=== PATIENT | male | born 1970 | race American Indian/Alaskan Native ===

== ENCOUNTER 2022-07-17 10:29 | Emergency (ER) | payer OTHER ==
[~2022-07-17] VITALS: Ht 172.7 cm; Wt 98.4 kg
[2022-07-17] MEDS ORDERED: SPIRONOLACTONE100 MG NG (17:00)
[2022-07-17] MEDS ORDERED: FUROSEMIDE40 MG PO (17:00)
== END 2022-07-17 17:41 | disposition home or self-care (01) ==
LOC: ED 10:29
DX: R18.8 Other ascites (principal); E11.9 Type 2 diabetes mellitus without complications; E78.00 Pure hypercholesterolemia, unspecified
CPT/HCPCS: 36415; 49083; 74177; 80053; 81003; 82040; 82945; 83690; 84155; 84157; 85025; 85610; 89051; 99284-25; Q9967

== ENCOUNTER 2023-02-10 10:06 | Emergency (ER) | payer OTHER ==
[~2023-02-10] VITALS: Ht 172.7 cm; Wt 98.6 kg
[~2023-02-10 10:06] MED LIST: FUROSEMIDE40 MG PO; SPIRONOLACTONE100 MG NG
[2023-02-10 10:53] LABS: BASOPHILS 5.6 % (0-2); HEMATOCRIT 36.4 % (35.0-50.0); HEMOGLOBIN 12.5 g/dL (12.0-18.0); MCHC 34.2 g/dl (30-36); MCV 90.6 fl (81-99); NEUTROPHILS 73.4 % (39-80); PLATELET COUNT 251 K/uL (140-440); RBC 4.02 M/ul (4.3-5.7); RDW 14.3 (10.5-15.0)
[2023-02-10 11:00] LABS: ALBUMIN 2.8 g/dL (3.4-5.0); ALBUMIN/GLOBULIN RATIO 0.61 (1.1-2.4); ANION GAP 13.5 (7-21); BILIRUBIN, TOTAL 1.7 ng/dL (0.2-1.0); BUN/CREATININE RATIO 13.79 (6.0-28.6); CALCIUM 8.5 mg/dL (8.5-10.1); CREATININE, SERUM 1.45 mg/dL (0.70-1.30); POTASSIUM 4.5 mmol/L (3.5-5.1); PROTEIN, TOTAL 7.4 g/dL (6.4-8.2)
[2023-02-10 11:53] LABS: INR 1.22 (0.80-1.30); PROTIME 14.9 Sec (11.2-14.2)
[2023-02-10 14:38] LABS: APPEARANCE, BODY FLUID CLOUDY; MONONUCLEAR CELLS, BODY FLUID 71; PMNS, BODY FLUID 29; RBC, BODY FLUID 5213; WBC, BODY FLUID 50
[2023-02-10 14:39] LABS: SOURCE, BODY FLUID ascites
[2023-02-10 15:01] VITALS: BP 140/88
[2023-02-12 19:57] LABS: LACTATE DEHYDROGENASE TOTAL,BF 54 U/L (()); LDH FLUID SOURCE Ascites fluid (()); TOTAL PROTEIN FLUID SOURCE Ascites fluid (()); TOTAL PROTEIN, BODY FLUID 1.9 g/dL (())
== END 2023-02-10 15:03 | disposition home or self-care (01) ==
LOC: ED 10:06
PROVIDERS: Emergency Medicine
DX: K70.31 Alcoholic cirrhosis of liver with ascites (principal); E11.9 Type 2 diabetes mellitus without complications
CPT/HCPCS: 36415; 49083; 80053; 84157; 85025; 85610; 87070; 87075; 87205; 89051; 99284-25

== ENCOUNTER 2023-02-19 15:39 | Emergency (ER) | payer OTHER ==
[~2023-02-19] VITALS: Ht 172.7 cm; Wt 100.6 kg
--- OUTSIDE RECORDS SUMMARY | 2023-02-19 15:57 | XMS ---
PreManage Notification: ANY HAHN Security Compliance Review Officer Events No recent Security Events currently on file CRITERIA MET - [facility] - 2 Visits in 30 Days CARE PROVIDERS There are no care providers on record at this time. Kay has no Care Guidelines for this patient. Lala VISIT COUNT (12 MO.) 3 [facility] TOTAL 3 NOTE: Visits indicate total known visits. ED/C VISIT TRACKING (12 MO.) [facility]19[facility]2023 15[facility] [facility] COMPLAINT: - ABDOMINAL PAIN 02/10/2023 10:07 [facility] [place] TYPE: Emergency COMPLAINT: - LOWER ABD PAIN DIAGNOSES: - Alcoholic cirrhosis of liver with ascites - Lower abdominal pain, unspecified - Type 2 diabetes mellitus without complications 07/17/2022 10:30 [facility] [place] TYPE: Emergency COMPLAINT: - FLUID IN STOMACH DIAGNOSES: - Other ascites - Pure hypercholesterolemia, unspecified - Type 2 diabetes mellitus without complications INPATIENT VISIT TRACKING (12 MO.) No inpatient visits to display in this time frame [id number]
[2023-02-19 19:25] VITALS: BP 123/80
[2023-02-19 19:31] LABS: APPEARANCE, BODY FLUID CLOUDY
[2023-02-19 19:32] LABS: RBC, BODY FLUID 2860; WBC, BODY FLUID 177
[2023-02-19 19:35] LABS: MONONUCLEAR CELLS, BODY FLUID 78; PMNS, BODY FLUID 22; SOURCE, BODY FLUID ascites
[2023-02-21 12:27] LABS: TOTAL PROTEIN FLUID SOURCE Ascites fluid (()); TOTAL PROTEIN, BODY FLUID 1.4 g/dL (())
== END 2023-02-19 19:25 | disposition home or self-care (01) ==
LOC: ED 15:39
PROVIDERS: Emergency Medicine
DX: K70.31 Alcoholic cirrhosis of liver with ascites (principal); N17.9 Acute kidney failure, unspecified; E11.9 Type 2 diabetes mellitus without complications; Z79.899 Other long term (current) drug therapy
CPT/HCPCS: 49083; 80053; 84157; 87070; 87205; 89051; 99284-25

== ENCOUNTER 2023-03-05 10:09 | Emergency (ER) | payer OTHER ==
[~2023-03-05] VITALS: Ht 172.7 cm; Wt 96.6 kg
--- OUTSIDE RECORDS SUMMARY | 2023-03-05 10:17 | XMS ---
PreManage Notification: ANY HAHN Security Clinical Informatics Manager Events No recent Security Events currently on file CRITERIA MET - [facility] - 2 Visits in 30 Days CARE PROVIDERS There are no care providers on record at this time. Kay has no Care Guidelines for this patient. Lala VISIT COUNT (12 MO.) [address] Jenny Roman ([place]re[place]) TOTAL 6 NOTE: Visits indicate total known visits. ED/C VISIT TRACKING (12 MO.) 03/05/2023 10:10 [facility] [place] TYPE: Emergency COMPLAINT: - ABD PAIN 02/26/2023 00:42 [facility] Ben LAMA ([place]) TYPE: Emergency DIAGNOSES: - Hypo-osmolality and hyponatremia - leg cramping - Muscle Pain 02/24/2023 14:22 [facility] [place] [facility] COMPLAINT: - ABD SWELLING DIAGNOSES: - Abdominal distension (gaseous) - Alcoholic cirrhosis of liver with ascites - Hypo-osmolality and hyponatremia - Type 2 diabetes mellitus without complications 02/19/2023 15:39 [facility] [place] TYPE: Emergency COMPLAINT: - ABDOMINAL PAIN DIAGNOSES: - Acute kidney failure, unspecified - Alcoholic cirrhosis of liver with ascites - Other terminal supervisor (current) drug therapy - Type 2 diabetes mellitus without complications 02/10/2023 10:07 [facility] [place] TYPE: Emergency COMPLAINT: - LOWER ABD PAIN DIAGNOSES: - Alcoholic cirrhosis of liver with ascites - Lower abdominal pain, unspecified - Type 2 diabetes mellitus without complications 07/17/2022 10:30 [facility] [place] TYPE: Emergency COMPLAINT: - FLUID IN STOMACH DIAGNOSES: - Other ascites - Pure hypercholesterolemia, unspecified - Type 2 diabetes mellitus without complications INPATIENT VISIT TRACKING (12 MO.) 02/26/2023 00:42 [facility] TYPE: Surgical Services DIAGNOSES: - Hepatic failure, unspecified without coma - Hypo-osmolality and hyponatremia - Unspecified cirrhosis of liver [email or web address]
[2023-03-05] MEDS ORDERED: MIDODRINE HCL5 MG PO (10:47)
[2023-03-05] MEDS ORDERED: SPIRONOLACTONE100 MG NG (10:47)
[2023-03-05] MEDS ORDERED: FUROSEMIDE40 MG PO (10:47)
[2023-03-05 13:36] VITALS: BP 105/55
== END 2023-03-05 13:37 | disposition home or self-care (01) ==
LOC: ED 10:09
DX: K74.60 Unspecified cirrhosis of liver (principal); E78.5 Hyperlipidemia, unspecified; E11.9 Type 2 diabetes mellitus without complications; Z79.899 Other long term (current) drug therapy
CPT/HCPCS: 49083; 99284-25; P9047

== ENCOUNTER 2023-03-11 12:04 | Emergency (ER) | payer OTHER ==
[~2023-03-11] VITALS: Ht 172.7 cm; Wt 97.6 kg
[~2023-03-11 12:04] MED LIST changes: +MIDODRINE HCL5 MG PO
--- OUTSIDE RECORDS SUMMARY | 2023-03-11 12:12 | XMS ---
PreManage Notification: ANY HAHN Security Bulk Sealer Events 1 event(s) in the past 18 months Most recent security events: Elopement at [facility] 02/24/2023 14:22 - Patient eloped before treatment completed. - Patient with suicidal and/or homicidal ideations eloped. - Patient eloped with IV in place. Details: PATIENT LEFT AMA CRITERIA MET - 6 ED Visits in 6 Months - Group Notification - [facility] - 2 Visits in 30 Days CARE PROVIDERS There are no care providers on record at this time. Kay has no Care Guidelines for this patient. E.D. VISIT COUNT (12 MO.) 6 [address] ([place]) TOTAL 7 NOTE: Visits indicate total known visits. ED/UCC VISIT TRACKING (12 MO.) 03/11/2023 12:05 [facility] [place] TYPE: Emergency COMPLAINT: - SWOLLEN ABD 03/05/2023 10:10 [facility] [place] [facility] COMPLAINT: - ABD PAIN DIAGNOSES: - Hyperlipidemia, unspecified - Other truck terminal manager (current) drug therapy - Type 2 diabetes mellitus without complications - Unspecified abdominal pain - Unspecified cirrhosis of liver 02/26/2023 00:42 [facility] Abel LAMA ([place]) TYPE: Emergency DIAGNOSES: - Hypo-osmolality and hyponatremia - leg cramping - Muscle Pain 02/24/2023 14:[address] [facility] [address] [facility] [place] TYPE: Emergency COMPLAINT: - ABD SWELLING DIAGNOSES: - Abdominal distension (gaseous) - Alcoholic cirrhosis of liver with ascites - Hypo-osmolality and hyponatremia - Type 2 diabetes mellitus without complications 02/19/2023 15:[address] [facility] [address] [facility] [place] TYPE: Emergency COMPLAINT: - ABDOMINAL PAIN DIAGNOSES: - Acute kidney failure, unspecified - Alcoholic cirrhosis of liver with ascites - Other mcfp (current) drug therapy - Type 2 diabetes mellitus without complications 02/10/2023 10:[address] [facility] [address] [facility] [place] TYPE: Emergency COMPLAINT: - LOWER ABD PAIN DIAGNOSES: - Alcoholic cirrhosis of liver with ascites - Lower abdominal pain, unspecified - Type 2 diabetes mellitus without complications 07/17/2022 10:[address] [facility] [address] [facility] [place] TYPE: Emergency COMPLAINT: - FLUID IN STOMACH DIAGNOSES: - Other ascites - Pure hypercholesterolemia, unspecified - Type 2 diabetes mellitus without complications INPATIENT VISIT TRACKING (12 MO.) 02/26/2023 00[facility]42 [facility] DIAGNOSES: - Hepatic failure, unspecified without coma - Hypo-osmolality and hyponatremia - Unspecified cirrhosis of liver [email or web address]
[2023-03-11 12:41] LABS: BASOPHILS 1.1 % (0-2); EOSINOPHILS 0.7 % (0-6); HEMATOCRIT 35.7 % (35.0-50.0); HEMOGLOBIN 12.3 g/dL (12.0-18.0); LYMPHOCYTES 6.9 % (24-44); MCH 31.3 (27-36); MCHC 34.3 g/dl (30-36); MCV 91.1 fl (81-99); MONOCYTES 13.1 % (0-12); NEUTROPHILS 78.2 % (39-80); PLATELET COUNT 265 K/uL (140-440); RBC 3.92 M/ul (4.3-5.7); RDW 14.2 (10.5-15.0)
[2023-03-11 12:57] LABS: INR 1.27 (0.80-1.30); PROTIME 15.5 Sec (11.2-14.2)
[2023-03-11 13:08] LABS: ALBUMIN 2.7 g/dL (3.4-5.0); ALBUMIN/GLOBULIN RATIO 0.75 (1.1-2.4); ANION GAP 15.2 (7-21); BILIRUBIN, TOTAL 1.8 ng/dL (0.2-1.0); BUN/CREATININE RATIO 22.58 (6.0-28.6); CALCIUM 8.8 mg/dL (8.5-10.1); CREATININE, SERUM 2.17 mg/dL (0.70-1.30); POTASSIUM 5.2 mmol/L (3.5-5.1); PROTEIN, TOTAL 6.3 g/dL (6.4-8.2)
[2023-03-11 15:35] VITALS: BP 129/70
== END 2023-03-11 15:35 | disposition home or self-care (01) ==
LOC: ED 12:04
PROVIDERS: Internal Medicine
DX: K72.10 Chronic hepatic failure without coma (principal); R18.8 Other ascites; E11.9 Type 2 diabetes mellitus without complications; E78.00 Pure hypercholesterolemia, unspecified; Z79.899 Other long term (current) drug therapy
CPT/HCPCS: 36415; 49083; 80053; 85025; 85610; J7040; P9047

== ENCOUNTER 2023-04-11 14:17 | Inpatient (IN) | payer OTHER ==
[2023-04-11] VITALS (7 sets, daily range): BP systolic 103–145; BP diastolic 69–90
[~2023-04-11] VITALS: Ht 172.7 cm; Wt 80.6 kg
--- OUTSIDE RECORDS SUMMARY | 2023-04-11 14:25 | XMS ---
PreManage Notification: ANY HAHN Security Airline Customer Service Agent Events 1 event(s) in the past 18 months Most recent security events: Elopement at [facility] 02/24/2023 14:22 - Patient eloped before treatment completed. - Patient with suicidal and/or homicidal ideations eloped. - Patient eloped with IV in place. Details: PATIENT LEFT AMA CRITERIA MET - 6 ED Visits in 6 Months - Group Notification CARE PROVIDERS There are no care providers on record at this time. Kay has no Care Guidelines for this patient. E.Howie. VISIT COUNT (12 MO.) [address] ([place]) TOTAL 8 NOTE: Visits indicate total known visits. ED/UCC VISIT TRACKING (12 MO.) 04/11/2023 14:18 [facility] [place] TYPE: Emergency COMPLAINT: - ABNORMAL LABS 03/11/2023 12:05 [facility] [place] TYPE: Emergency COMPLAINT: - SWOLLEN ABD DIAGNOSES: - Chronic hepatic failure without coma - Other ascites - Other intra-abdominal and pelvic swelling, mass and lump - Other terminal operations manager (current) drug therapy - Pure hypercholesterolemia, unspecified - Type 2 diabetes mellitus without complications 03/05/2023 10:10 [facility] [place] TYPE: Emergency COMPLAINT: - ABD PAIN DIAGNOSES: - Hyperlipidemia, unspecified - Other terminal operations manager (current) drug therapy - Type 2 diabetes mellitus without complications - Unspecified abdominal pain - Unspecified cirrhosis of liver 02[facility]26[facility]2023 00[facility]: Emergency DIAGNOSES: - Hypo-osmolality and hyponatremia - leg cramping - Muscle Pain 02/24/2023 14:22 [facility] [place] TYPE: Emergency COMPLAINT: - ABD SWELLING DIAGNOSES: - Abdominal distension (gaseous) - Alcoholic cirrhosis of liver with ascites - Hypo-osmolality and hyponatremia - Type 2 diabetes mellitus without complications 02/19/2023 15:39 [facility] [place] TYPE: Emergency COMPLAINT: - ABDOMINAL PAIN DIAGNOSES: - Acute kidney failure, unspecified - Alcoholic cirrhosis of liver with ascites - Other half-way (current) drug therapy - Type 2 diabetes mellitus without complications 02/10/2023 10:07 [facility] [place] TYPE: Emergency COMPLAINT: - LOWER ABD PAIN DIAGNOSES: - Alcoholic cirrhosis of liver with ascites - Lower abdominal pain, unspecified - Type 2 diabetes mellitus without complications 07/17/2022 10:30 [facility] [place] [facility] COMPLAINT: - FLUID IN STOMACH DIAGNOSES: - Other ascites - Pure hypercholesterolemia, unspecified - Type 2 diabetes mellitus without complications INPATIENT VISIT TRACKING (12 MO.) 02/26/2023 00:42 [facility] ([place]) TYPE: Surgical Services DIAGNOSES: - Hepatic failure, unspecified without coma - Hypo-osmolality and hyponatremia - Unspecified cirrhosis of liver [email or web address]
[2023-04-11 15:27] LABS: BASOPHILS 0.7 % (0-2); EOSINOPHILS 1.4 % (0-6); HEMATOCRIT 37.4 % (35.0-50.0); HEMOGLOBIN 13.1 g/dL (12.0-18.0); LYMPHOCYTES 7.1 % (24-44); MCH 31.4 (27-36); MCHC 35.1 g/dl (30-36); MCV 89.4 fl (81-99); MONOCYTES 12.7 % (0-12); NEUTROPHILS 78.1 % (39-80); PLATELET COUNT 178 K/uL (140-440); RBC 4.19 M/ul (4.3-5.7)
[2023-04-11 15:42] LABS: ALBUMIN 2.8 g/dL (3.4-5.0); ALBUMIN/GLOBULIN RATIO 0.88 (1.1-2.4); ANION GAP 15.9 (7-21); BILIRUBIN, TOTAL 2.8 ng/dL (0.2-1.0); BUN/CREATININE RATIO 23.92 (6.0-28.6); CALCIUM 8.8 mg/dL (8.5-10.1); CREATININE, SERUM 2.55 mg/dL (0.70-1.30); POTASSIUM 5.9 mmol/L (3.5-5.1)
--- NOTE | 2023-04-11 18:15 | NUR ---
PATIENT ARRIVED TO CCU ROOM 127 AT 1745 BY JULIANA BENOIT. PATIENT STOOD AND TRANSFERED TO THE BATHROOM AND THEN BACK TO THE BED. PATIENT IS WEAK WALKING AROUND. PATIENTS AT THE BEDSIDE AND HELPED ANSWER ADMISSION QUESTIONS. PATIENT REPORTS BEING COLD ALL THE TIME. PATIENT HAS BEEN DOING OUTPATIENT PARACENTESIS. PATIENT REPORTS POOR APPETITE. PATIENTS NOTES HIS HEALTH THE PAST TWO MONTHS HAS CONTINUED TO DECREASE AND PATIENT HAS BECOME WEAKER WITH MINIMAL APPETITE. PATIENT IS AWAITING APT AT [facility] IN THE [place] FOR SPEACIALIST FOLLOWUP. PATIENT PROVIDED WITH 2 WARM BLANKETS. CALL LIGHT AT BEDSIDE AND XPLAINED TO PATIENT TO CALL STAFF FOR ASSISTANCE TO GET OUT OF BED. NO OTHER NEEDS AT THIS TIME.
[2023-04-11 19:23] LABS: ANION GAP 12.3 (7-21); BUN/CREATININE RATIO 23.39 (6.0-28.6); CALCIUM 8.9 mg/dL (8.5-10.1); CREATININE, SERUM 2.65 mg/dL (0.70-1.30); POTASSIUM 5.3 mmol/L (3.5-5.1)
--- NOTE | 2023-04-11 19:45 | NUR ---
SHIFT REPORT RECEIVED. PATIENT RESTING IN BED. PO FLUIDS PROVIDED PER DIET ORDER. WARM BLANKET PROVIDED. PATIENT DENIED OTHER NEEDS AT THIS TIME. CALL LIGHT IN REACH.
--- NOTE | 2023-04-11 21:32 | NUR ---
ACCU CHECK DONE; PATIENT HAD SOME BROTH AND SIPS OF WATER. GLUCOSE WNL; NO SSI REQUIRED. PATIENT IS TREMULOUS IN HIS HANDS AND THORUGHOUT HIS UPPER BODY; PATIENT REPORTS THIS IS NORMAL FOR HIM BEING COLD. PATIENT IS WARM TO TOUCH. ORAL TEMP WNL. WARM BLANKETS PROVIDED AND HEAT IN ROOM TURNED UP. PATIENT DENIED ANY NEEDS. CALL LIGHT IN REACH. VS STABLE. LIGHTS DIMMED.
--- NOTE | 2023-04-11 22:15 | NUR ---
SECONDARY IV SITE STARTED AND LABS DRAW. PATIENT TOLERATED WELL. PATIENT PROVIDED WARM BLANKET. CONTINUES TO REST IN BED WATCHING TV. DENIES ANY CONCERNS OR NEEDS. CALL LIGHT IN REACH.
--- NOTE | 2023-04-11 22:51 | EKG ---
[facility] [address] [place] [address] Signed Normal sinus rhythm Cannot rule out Anterior infarct , age undetermined Abnormal ECG No previous ECGs available Confirmed by Fabienne Dinh MD () on 04/11/2023 10:51:35 PM Electronically Signed By: FABIENNE DINH MD 04/11/232250 PATIENT NAME: ANY HAHN Electrocardiogram DATE OF : 66 PHYSICIAN: FABIENNE DINH MD REPORT #: [id number] REPORT IS CONFIDENTIAL AND NOT TO BE RELEASED WITHOUT AUTHORIZATION
[2023-04-11 23:02] LABS: ANION GAP 13.9 (7-21); BUN/CREATININE RATIO 24.01 (6.0-28.6); CALCIUM 8.7 mg/dL (8.5-10.1); CREATININE, SERUM 2.54 mg/dL (0.70-1.30); POTASSIUM 5.9 mmol/L (3.5-5.1)
[2023-04-12] VITALS (13 sets, daily range): BP systolic 86–143; BP diastolic 65–96
--- NOTE | 2023-04-12 00:15 | NUR ---
PATIENT RESTING IN BED. VS STABLE. IV SITE WNL; FLUIDS PER ORDER. ASSIST PATIENT TO REPOSITION FOR COMFORT. CALL LIGHT IN REACH.
--- NOTE | 2023-04-12 02:58 | NUR ---
LABS DRAWN MN ORDER. PATIENT RESTING IN BED. APPEARS COMFORTABLE. DENIED ANY NEEDS OR CONCERNS. CALL LIGHT IN REACH.
[2023-04-12 03:10] LABS: ANION GAP 14.6 (7-21); BUN/CREATININE RATIO 25.84 (6.0-28.6); CALCIUM 8.6 mg/dL (8.5-10.1); CREATININE, SERUM 2.36 mg/dL (0.70-1.30); POTASSIUM 5.6 mmol/L (3.5-5.1)
--- NOTE | 2023-04-12 03:32 | NUR ---
0300 LABS DRAWN PER ORDER. [address] DR. DINH. PLAN TO GIVE PATIENT ADDITIONAL 250 MLS OF NS AT 75 ML/HR. VERIFIED VIA REPEAT BACK.
--- NOTE | 2023-04-12 03:41 | NUR ---
ASSISTED PATIENT TO REPOSITION FOR COMFORT. IV SITE FLUSHED EASILY. IV FLUIDS PER ORDER. VS STABLE. PATIENT DENIED ANY NEEDS OR CONCERNS.
--- NOTE | 2023-04-12 05:00 | NUR ---
ASSISTED PATIENT TO PUT SOCKS ON AND REPOSITION FOR COMFORT. PATIENT DENIED PAIN OR NAUSEA. VS STABLE. IV SITES WNL X2; FLUIDS PER ORDER. PATIENT DENIED ANY NEEDS. CALL LIGHT IN REACH.
--- NOTE | 2023-04-12 07:06 | NUR ---
LABS DRAWN. IV SITE SL AT THIS TIME. PATIENT PROVIDED WARM BLANKET AND FRESH ICE WATER. CALL LIGHT IN REACH.
[2023-04-12 07:09] LABS: HEMOGLOBIN 11.7 g/dL (12.0-18.0)
[2023-04-12 07:12] LABS: BASOPHILS 0.9 % (0-2); HEMATOCRIT 33.6 % (35.0-50.0); MCH 31.1 (27-36); MCHC 34.7 g/dl (30-36); MCV 89.6 fl (81-99); MONOCYTES 12.7 % (0-12); NEUTROPHILS 73.4 % (39-80); PLATELET COUNT 156 K/uL (140-440); RBC 3.75 M/ul (4.3-5.7); RDW 15.1 (10.5-15.0)
[2023-04-12 07:19] LABS: ANION GAP 14.8 (7-21); BUN/CREATININE RATIO 26.78 (6.0-28.6); CALCIUM 8.5 mg/dL (8.5-10.1); CREATININE, SERUM 2.24 mg/dL (0.70-1.30); POTASSIUM 5.8 mmol/L (3.5-5.1)
[2023-04-12 07:24] LABS: MAGNESIUM 2.2 mg/dL (1.8-2.4); PHOSPHORUS, INORGANIC 5.1 mg/dL (2.5-4.9)
[2023-04-12 07:25] LABS: ALBUMIN 2.4 g/dL (3.4-5.0); ALBUMIN/GLOBULIN RATIO 0.83 (1.1-2.4); BILIRUBIN, DIRECT 0.4 mg/dL (0.0-0.2); BILIRUBIN, INDIRECT 2.6 (0.1-0.7); PROTEIN, TOTAL 5.3 g/dL (6.4-8.2)
--- NOTE | 2023-04-12 07:30 | NUR ---
REPORT RECEIVED. PATIENT IS SITTING UP IN BED WATCHING TV. DENIES PAIN. TALKED WITH PATIENT ABOUT POC FOR THE DAY.
--- NOTE | 2023-04-12 08:00 | NUR ---
ASSESSMENT DONE. SITTING UP IN BED, READY TO TAKE BREAKFAST. IN ROOM. DR. DINH AWARE MOST CURRENT LABS OR UP FOR HIS REVEIW. NO FUTHER ORDERS AT THIS TIME.
--- NOTE | 2023-04-12 09:01 | NUR ---
PT CONT TO REST WITH EYES CLOSED, RR 15 WITH OXYMASK 5L AND SPO2 98%, HR 80-100'S AFIB.
--- NOTE | 2023-04-12 10:50 | NUR ---
LABS DRAWN. PATIENT IS SITTING UP IN CHAIR. IN ROOM. DENIES PAIN.
[2023-04-12 11:10] LABS: ANION GAP 12.9 (7-21); BUN/CREATININE RATIO 27.35 (6.0-28.6); CALCIUM 8.7 mg/dL (8.5-10.1); CREATININE, SERUM 2.34 mg/dL (0.70-1.30); POTASSIUM 4.9 mmol/L (3.5-5.1)
--- NOTE | 2023-04-12 11:15 | NUR ---
DR. DINH AWARE OF LABS. AMMONIA LEVEL IS 187. ORDERS RECEIVED.
[2023-04-12] MEDS ORDERED: SODIUM BICARBO325 MG PO (12:20)
--- NOTE | 2023-04-12 12:22 | NUR ---
MED REC COMPLETE
--- NOTE | 2023-04-12 12:29 | NUR ---
SITTING UP IN BED FOR LUNCH. ASSESSMENT UNCHANGED. IVF AT 75 ML/HR INFUSING. DENIES PAIN.
--- NOTE | 2023-04-12 14:20 | NUR ---
UP TO BR, AMBULATED TO BR USING WALKER. VOIDED APPROX 25 ML/OF NICOLASA URINE. BACK TO BED W/O INCIDENT.
--- NOTE | 2023-04-12 14:50 | NUR ---
ZOFRAN 4 MG IV GIVEN FOR NASUEA AND VOMITING.
[2023-04-12 15:14] LABS: ANION GAP 14.9 (7-21); BUN/CREATININE RATIO 25.4 (6.0-28.6); CALCIUM 8.8 mg/dL (8.5-10.1); CREATININE, SERUM 2.44 mg/dL (0.70-1.30); POTASSIUM 4.9 mmol/L (3.5-5.1)
--- NOTE | 2023-04-12 16:00 | NUR ---
TO BR TO EXPELL STOOL. NO URINE. PATIENT STATES HE THINKS HE IS FEELING A LITTLE BETTER. AFFECT FLAT. FOLLOWING COMMANDS W/O DELAY.
--- NOTE | 2023-04-12 19:00 | NUR ---
PATIENT IS SLEEPING. NO CHANGES.
--- NOTE | 2023-04-12 19:00 | NUR ---
SHIFT REPORT RECEIVED. PATIENT RESTING IN BED. EYES CLOSED. SINUS RHYTHM ON TELE10. CALL LIGHT IN REACH.
--- NOTE | 2023-04-12 21:00 | NUR ---
PATIENT RESTING IN BED. REPORTS GI UPSET HAS IMPROVED BUT APPETITE IS POOR. BLOOD GLUCOSE BOARDERLINE; PATIENT DECLINED THE 1 UNIT OF INSULIN. SCHEDULED MEDS PROVIDED. IV SITE WNL X2; FLUIDS INFUSING PER ORDER. DISCUSSED PLAN OF CARE AND SCHEDULED FOR LAB DRAWS. PATIENT VERBALIZED UNDERSTANDING. PATIENT TOLERATING ROOM AIR; LUNGS ARE CLEAR. ABD IS ROUND, SOFT AND BOWEL SOUNDS ACTIVE. PATIENT NOT CURRENTLY WEARING SCDs BUT AGREES TO ALLOW THEM PUT ON PRIOR TO GOING TO SLEEP FOR THE NIGHT. PATIENT ALSO VERBALIZED UNDERSTANDING OF CALLING FOR ASSISTANCE PRIOR TO EXITING THE BED TO VOID. CALL LIGHT IS IN REACH. FRESH ICE WATER PROVIDED.
--- NOTE | 2023-04-12 23:04 | NUR ---
PATIENT UP TO THE BATHROOM. SLIGHTLY INCONTINENT OF STOOL. .PATIENT HESITANT TO ALLOW STAFF TO ASSIST WITH CLEANING AND PANTS CHANGE. PATIENT DID ALLOW ATTENDS TO BE PLACED AND PERSONAL UNDERWEAR AND PANTS RINSED OUT. PATIENT HAD MEDIUM LIQUID STOOL AND URINE MIXED. PATIENT BACK TO BED. LAB IN FOR SCHEDULED DRAW. IV FLUIDS IN STAND BY FOR 2 MINS AND THEN DRAW DONE. PATIENT TOLERATED WELL. CALL LIGHT IN REACH.
[2023-04-12 23:16] LABS: ANION GAP 13.4 (7-21); BUN/CREATININE RATIO 23.84 (6.0-28.6); CALCIUM 8.4 mg/dL (8.5-10.1); CREATININE, SERUM 2.39 mg/dL (0.70-1.30); POTASSIUM 4.4 mmol/L (3.5-5.1)
--- NOTE | 2023-04-12 23:42 | NUR ---
REPORT GIVEN TO KOFI BENOIT. DISCUSSED PATIENT'S LABS WITH . NO NEW ORDER. RECHECK LABS IN AM.
[2023-04-13 00:34] VITALS: BP 114/62
--- NOTE | 2023-04-13 00:36 | NUR ---
PATIENT TRANSFERRED FROM CCU. REPORT RECEIVED FROM CCU RN. VS OBTAINED AND RECORDED. PATIENT EDUCATED ON ROOM. NO FURTHER NEEDS. CALL LIGHT IN REACH.
--- NOTE | 2023-04-13 02:26 | NUR ---
PATIENT RESTING IN BED WITH EYES CLOSED. RESPIRATIONS EVEN AND UNLABORED. CALL LIGHT IN REACH.
--- NOTE | 2023-04-13 03:33 | NUR ---
CALL LIGHT ANSWERED. PATIENT MINIMAL SBA TO BATHROOM FOR LOOSE BM. PATIENTS LINENS AND GOWN CHANGED. BOTH IVs FLUSHED AND WNL. NEW BAG IV FLUID INFUSING PER ORDER. ASSESSMENT COMPLETE. ACTIVE BOWEL TONES. PATIENT REPORTS NO PAIN OR NAUSEA AT THIS TIME. 2 WARM BLANKETS PROVIDED. PATIENT HAS NO FURTHER NEEDS. CALL LIGHT IN REACH.
[2023-04-13 05:22] LABS: BASOPHILS 0.8 % (0-2); EOSINOPHILS 1.5 % (0-6); HEMATOCRIT 32.8 % (35.0-50.0); HEMOGLOBIN 11.7 g/dL (12.0-18.0); MCH 31.6 (27-36); MCHC 35.5 g/dl (30-36); MCV 89.1 fl (81-99); MONOCYTES 13.9 % (0-12); NEUTROPHILS 76.8 % (39-80); PLATELET COUNT 159 K/uL (140-440); RBC 3.69 M/ul (4.3-5.7); RDW 15.1 (10.5-15.0)
[2023-04-13 05:35] LABS: MAGNESIUM 2.3 mg/dL (1.8-2.4)
[2023-04-13 05:37] LABS: ALBUMIN 2.4 g/dL (3.4-5.0); ALBUMIN/GLOBULIN RATIO 0.83 (1.1-2.4); ANION GAP 14.5 (7-21); BILIRUBIN, TOTAL 2.4 ng/dL (0.2-1.0); BUN/CREATININE RATIO 23.3 (6.0-28.6); CALCIUM 8.3 mg/dL (8.5-10.1); CREATININE, SERUM 2.36 mg/dL (0.70-1.30); POTASSIUM 4.5 mmol/L (3.5-5.1); PROTEIN, TOTAL 5.3 g/dL (6.4-8.2)
[2023-04-13 06:04] VITALS: BP 104/68
--- NOTE | 2023-04-13 06:05 | NUR ---
PATIENT RESTING IN BED WITH EYES CLOSED. PATIENT AWAKENS EASILY. VS AND I&Os OBTAINED AND RECORDED. PATIENT HAS NO FURTHER NEEDS. CALL LIGHT IN REACH.
[2023-04-13 10:20] VITALS: BP 112/63
[2023-04-13] MEDS ORDERED: LACTULOSE20 GM/30 M PO (10:40)
[2023-04-13] MEDS ORDERED: ONDANSETRON ODT8 MG PO (10:42)
== END 2023-04-13 12:15 | disposition home or self-care (01) | DRG 641 ==
LOC: ED 14:17 → CCU 17:06 → MS 04-13 01:12
PROVIDERS: Emergency Medicine; ADMIT Family Medicine; ATTEND Family Medicine
DX: E87.5 Hyperkalemia (principal); E72.20 Disorder of urea cycle metabolism, unspecified; N17.9 Acute kidney failure, unspecified; E87.1 Hypo-osmolality and hyponatremia; K74.60 Unspecified cirrhosis of liver; E83.39 Other disorders of phosphorus metabolism; R26.81 Unsteadiness on feet; I95.9 Hypotension, unspecified; N18.32 Chronic kidney disease, stage 3b; E11.22 Type 2 diabetes mellitus with diabetic chronic kidney disease; E78.00 Pure hypercholesterolemia, unspecified; Z79.01 Long term (current) use of anticoagulants; Z79.899 Other long term (current) drug therapy
CPT/HCPCS: 36415; 80048; 80053; 80076; 82140; 83735; 84100; 85025; 93005; 93010; 97116; 97161; 99285-25; J1815; J2405; J7030

== ENCOUNTER 2023-04-18 09:16 | Emergency (ER) | payer OTHER ==
[~2023-04-18] VITALS: Ht 172.7 cm; Wt 80.3 kg
[~2023-04-18 09:16] MED LIST changes: +LACTULOSE20 GM/30 M PO; +ONDANSETRON ODT8 MG PO; +SODIUM BICARBO325 MG PO
--- OUTSIDE RECORDS SUMMARY | 2023-04-18 09:22 | XMS ---
PreManage Notification: ANY HAHN Security Manual Training Teacher Events 1 event(s) in the past 18 months Most recent security events: Elopement at [facility] 02/24/2023 14:22 - Patient eloped before treatment completed. - Patient with suicidal and/or homicidal ideations eloped. - Patient eloped with IV in place. Details: PATIENT LEFT AMA CRITERIA MET - 6 ED Visits in 6 Months - Group Notification - [facility] - 2 Visits in 30 Days CARE PROVIDERS There are no care providers on record at this time. Kay has no Care Guidelines for this patient. E.D. VISIT COUNT (12 MO.) 8 [address] ([place]) TOTAL 9 NOTE: Visits indicate total known visits. ED/UCC VISIT TRACKING (12 MO.) 04/18/2023 09:[address] [facility] [place] [facility]: Emergency COMPLAINT: - FATIGUE 04/11/2023 14:18 [facility] [place] [facility] [place] TYPE: Emergency COMPLAINT: - ABNORMAL LABS 03/11/2023 12:05 [facility] [place] TYPE: Emergency COMPLAINT: - SWOLLEN ABD DIAGNOSES: - Chronic hepatic failure without coma - Other ascites - Other intra-abdominal and pelvic swelling, mass and lump - Other assisted (current) drug therapy - Pure hypercholesterolemia, unspecified - Type 2 diabetes mellitus without complications 03/05/2023 10:10 [facility] [place] TYPE: Emergency COMPLAINT: - ABD PAIN DIAGNOSES: - Hyperlipidemia, unspecified - Other assisted (current) drug therapy - Type 2 diabetes mellitus without complications - Unspecified abdominal pain - Unspecified cirrhosis of liver [facility] TYPE: Emergency DIAGNOSES: - Hypo-osmolality and hyponatremia - leg cramping - Muscle Pain 02/24/2023 14:22 [facility] [place] TYPE: Emergency COMPLAINT: - ABD SWELLING DIAGNOSES: - Abdominal distension (gaseous) - Alcoholic cirrhosis of liver with ascites - Hypo-osmolality and hyponatremia - Type 2 diabetes mellitus without complications 02/19/2023 15:[address] [facility] [address] [facility] [place] TYPE: Emergency COMPLAINT: - ABDOMINAL PAIN DIAGNOSES: - Acute kidney failure, unspecified - Alcoholic cirrhosis of liver with ascites - Other assisted (current) drug therapy - Type 2 diabetes mellitus without complications 02/10/2023 10:07 [facility] [place] TYPE: Emergency COMPLAINT: - LOWER ABD PAIN DIAGNOSES: - Alcoholic cirrhosis of liver with ascites - Lower abdominal pain, unspecified - Type 2 diabetes mellitus without complications 07/17/2022 10:[address] [facility] [address] [facility] [place] TYPE: Emergency COMPLAINT: - FLUID IN STOMACH DIAGNOSES: - Other ascites - Pure hypercholesterolemia, unspecified - Type 2 diabetes mellitus without complications INPATIENT VISIT TRACKING (12 MO.) 04/11/2023 17:[address] [facility] [address] [facility] [place] TYPE: Medical Surgical COMPLAINT: - HYPERKALEMIA DIAGNOSES: - Acute kidney failure, unspecified - Acute kidney failure, unspecified - Chronic kidney disease, stage 3b - Chronic kidney disease, stage 3b - Disorder of urea cycle metabolism, unspecified - Disorder of urea cycle metabolism, unspecified - Hyperkalemia - Hypo-osmolality and hyponatremia - Hypo-osmolality and hyponatremia - Hypotension, unspecified - Hypotension, unspecified - long-term (current) use of anticoagulants - long-term (current) use of anticoagulants - Other disorders of phosphorus metabolism - Other disorders of phosphorus metabolism - Other superintendent marine oil terminal (current) 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: Surgical Services DIAGNOSES: - Hepatic failure, unspecified without coma - Hypo-osmolality and hyponatremia - Unspecified cirrhosis of liver [email or web address]
[2023-04-18 09:37] LABS: BASOPHILS 0.9 % (0-2); EOSINOPHILS 1.4 % (0-6); HEMOGLOBIN 12.4 g/dL (12.0-18.0); LYMPHOCYTES 6.8 % (24-44); MCH 31.6 (27-36); MCHC 35.4 g/dl (30-36); MCV 89.2 fl (81-99); MONOCYTES 10.6 % (0-12); NEUTROPHILS 80.3 % (39-80); PLATELET COUNT 222 K/uL (140-440); RBC 3.92 M/ul (4.3-5.7); RDW 15.8 (10.5-15.0)
[2023-04-18 09:49] LABS: ALBUMIN 2.9 g/dL (3.4-5.0); ANION GAP 11.9 (7-21); BILIRUBIN, TOTAL 2.2 ng/dL (0.2-1.0); BUN/CREATININE RATIO 22.95 (6.0-28.6); CALCIUM 8.6 mg/dL (8.5-10.1); CREATININE, SERUM 2.44 mg/dL (0.70-1.30); MAGNESIUM 2.2 mg/dL (1.8-2.4); POTASSIUM 4.9 mmol/L (3.5-5.1); PROTEIN, TOTAL 5.8 g/dL (6.4-8.2)
[2023-04-18] MEDS ORDERED: XIFAXAN550 MG PO (13:28)
[2023-04-18 13:49] VITALS: BP 103/50
== END 2023-04-18 13:50 | disposition home or self-care (01) ==
LOC: ED 09:16
PROVIDERS: Emergency Medicine
DX: R53.1 Weakness (principal); K76.9 Liver disease, unspecified; E87.1 Hypo-osmolality and hyponatremia; E11.9 Type 2 diabetes mellitus without complications; Z79.899 Other long term (current) drug therapy
CPT/HCPCS: 36415; 80053; 83735; 84484; 85025; 99283

== ENCOUNTER 2023-05-22 07:59 | Inpatient (IN) | payer OTHER ==
[2023-05-22] VITALS (12 sets, daily range): BP systolic 88–188; BP diastolic 62–149
[~2023-05-22] VITALS: Ht 172.7 cm; Wt 76.3 kg
[~2023-05-22 07:59] MED LIST changes: +XIFAXAN550 MG PO
--- OUTSIDE RECORDS SUMMARY | 2023-05-22 08:07 | XMS ---
PreManage Notification: ANY [facility] [employer] Events 1 event(s) in the past 18 months Most recent security events: Elopement at [facility] 02/24/2023 14:22 - Patient eloped with IV in place. - Patient eloped before treatment completed. - Patient with suicidal and/or homicidal ideations eloped. Details: PATIENT LEFT AMA CRITERIA MET - 6 ED Visits in 6 Months - Group Notification CARE PROVIDERS JESUS SILVESTRE [facility] Current PHONE: Unknown Kay has no Care Guidelines for this patient. Lala VISIT COUNT (12 MO.) [address] ([place]) TOTAL 10 NOTE: Visits indicate total known visits. ED/UCC VISIT TRACKING (12 MO.) 05/22/2023 07:59 [facility] [place] TYPE: Emergency COMPLAINT: - AMS 04/18/2023 09:16 [facility] [place] TYPE: Emergency COMPLAINT: - FATIGUE DIAGNOSES: - Hypo-osmolality and hyponatremia - Liver disease, unspecified - Other meterman (current) drug therapy - Type 2 diabetes mellitus without complications - Weakness 04/11/2023 14:18 [facility] [place] TYPE: Emergency COMPLAINT: - ABNORMAL LABS 03/11/2023 12:05 [facility] [place] TYPE: Emergency COMPLAINT: - SWOLLEN ABD DIAGNOSES: - Chronic hepatic failure without coma - Other ascites - Other intra-abdominal and pelvic swelling, mass and lump - Other usp (current) drug therapy - Pure hypercholesterolemia, unspecified - Type 2 diabetes mellitus without complications 03/05/2023 10:10 [facility] [place] TYPE: Emergency COMPLAINT: - ABD PAIN DIAGNOSES: - Hyperlipidemia, unspecified - Other usp (current) drug therapy - Type 2 diabetes mellitus without complications - Unspecified abdominal pain - Unspecified cirrhosis of liver 02/26/2023 00:42 [facility] ([place]) TYPE: Emergency DIAGNOSES: - Hypo-osmolality and hyponatremia - leg cramping - Muscle Pain 02/24/2023 14:22 [facility] [place] TYPE: Emergency COMPLAINT: - ABD SWELLING DIAGNOSES: - Abdominal distension (gaseous) - Alcoholic cirrhosis of liver with ascites - Hypo-osmolality and hyponatremia - Type 2 diabetes mellitus without complications 02/19/2023 15:39 [facility] [place] TYPE: Emergency COMPLAINT: - ABDOMINAL PAIN DIAGNOSES: - Acute kidney failure, unspecified - Alcoholic cirrhosis of liver with ascites - Other meterman (current) drug therapy - Type 2 diabetes mellitus without complications 02/10/2023 10:07 [facility] [place] TYPE: Emergency COMPLAINT: - LOWER ABD PAIN DIAGNOSES: - Alcoholic cirrhosis of liver with ascites - Lower abdominal pain, unspecified - Type 2 diabetes mellitus without complications 07/17/2022 10:30 [facility] [place] TYPE: Emergency COMPLAINT: - FLUID IN STOMACH DIAGNOSES: - Other ascites - Pure hypercholesterolemia, unspecified - Type 2 diabetes mellitus without complications INPATIENT VISIT TRACKING (12 MO.) 04/11/2023 17:06 [facility] TYPE: Medical Surgical COMPLAINT: - HYPERKALEMIA DIAGNOSES: - Acute kidney failure, unspecified - Acute kidney failure, unspecified - Chronic kidney disease, stage 3b - Chronic kidney disease, stage 3b - Disorder of urea cycle metabolism, unspecified - Disorder of urea cycle metabolism, unspecified - Hyperkalemia - Hypo-osmolality and hyponatremia - Hypo-osmolality and hyponatremia - Hypotension, unspecified - Hypotension, unspecified - intermediate (current) use of anticoagulants - long term (current) use of anticoagulants - Other disorders of phosphorus metabolism - Other disorders of phosphorus metabolism - Other usp (current) drug therapy - Other usp (current) drug therapy - Pure hypercholesterolemia, unspecified - Pure hypercholesterolemia, unspecified - Type 2 diabetes mellitus with diabetic chronic kidney disease - Type 2 diabetes mellitus with diabetic chronic kidney disease - Unspecified cirrhosis of liver - Unspecified cirrhosis of liver - Unsteadiness on feet - Unsteadiness on feet [facility]23 [facility]: Surgical Services DIAGNOSES: - Hepatic failure, unspecified without coma - Hypo-osmolality and hyponatremia - Unspecified cirrhosis of liver [email or web address]
[2023-05-22 09:15] LABS: BASOPHILS 0.4 % (0-2); EOSINOPHILS 0.2 % (0-6); HEMATOCRIT 36.5 % (35.0-50.0); HEMOGLOBIN 12.9 g/dL (12.0-18.0); LYMPHOCYTES 4.8 % (24-44); MCH 32.5 (27-36); MCHC 35.4 g/dl (30-36); MCV 91.7 fl (81-99); MONOCYTES 7.9 % (0-12); NEUTROPHILS 86.7 % (39-80); PLATELET COUNT 181 K/uL (140-440); RBC 3.98 M/ul (4.3-5.7); RDW 16.5 (10.5-15.0)
[2023-05-22 09:24] LABS: INR 1.15 (0.80-1.30); PROTIME 14.4 Sec (11.2-14.2)
[2023-05-22 09:29] LABS: ALBUMIN 2.8 g/dL (3.4-5.0); ALBUMIN/GLOBULIN RATIO 0.78 (1.1-2.4); ALKALINE PHOSPHATASE 112 U/L (46-116); ALT (SGPT) 11 U/L (14-59); ANION GAP 19.2 (7-21); AST (SGOT) 26 U/L (15-37); BILIRUBIN, TOTAL 3.9 ng/dL (0.2-1.0); BUN/CREATININE RATIO 24.47 (6.0-28.6); CARBON DIOXIDE 20 mmol/L (21-32); CHLORIDE 91 mmol/L (98-107); CREATININE, SERUM 2.37 mg/dL (0.70-1.30); GLOMERULAR FILTRATION RATE,EST 32 mL/min (>60); POTASSIUM 5.2 mmol/L (3.5-5.1); PROTEIN, TOTAL 6.4 g/dL (6.4-8.2); UREA NITROGEN 58 mg/dL (7-18)
[2023-05-22 09:39] LABS: BILIRUBIN, URINE NEGATIVE (negative); BLOOD/HGB, URINE NEGATIVE (Negative); KETONE, URINE TRACE (Negative); LEUK ESTERASE, URINE NEGATIVE (negative); NITRITE, URINE NEGATIVE (negative)
[2023-05-22 09:50] LABS: BACTERIA, URINE NONE SEEN /hpf (negative); CASTS, URINE NONE SEEN \\lpf; COLLECTION TYPE, URINE CLEAN CATCH; CRYSTALS, URINE NONE SEEN (0-1+); EPITHELIAL CELLS, URINE SQUAMOUS 1+ /lpf (0-1+); RED BLOOD CELLS, URINE 0-1 /hpf (0-5); REFLEX CULTURE, URINE No (No)
[2023-05-22 10:01] LABS: AMPHETAMINES, URINE NEGATIVE (NEGATIVE); BARBITURATES, URINE NEGATIVE (NEGATIVE); BENZODIAZEPINE, URINE NEGATIVE (NEGATIVE); BUPRENORPHINE, URINE NEGATIVE (NEGATIVE); CANNABINOID, URINE NEGATIVE (NEGATIVE); COCAINE, URINE NEGATIVE (NEGATIVE); ECSTASY, URINE NEGATIVE (NEGATIVE); FENTANYL, URINE NEGATIVE (NEGATIVE); METHADONE, URINE NEGATIVE (NEGATIVE); OPIATES, URINE NEGATIVE (NEGATIVE); OXYCODONE, URINE NEGATIVE (NEGATIVE); PHENCYCLIDINE, URINE NEGATIVE (NEGATIVE)
[2023-05-22 13:09] LABS: LACTIC ACID, BLOOD 2.9 mmol/L (0.4-2.0)
[2023-05-22 13:22] LABS: APPEARANCE, BODY FLUID CLOUDY
[2023-05-22 13:23] LABS: MONONUCLEAR CELLS, BODY FLUID 78; PMNS, BODY FLUID 22; RBC, BODY FLUID 1388 CELLS/MM^3; SOURCE, BODY FLUID ascites; WBC, BODY FLUID 111 CELLS/MM^3
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
[2023-05-22] MEDS ORDERED: MIDODRINE HCL10 MG PO (15:30)
[2023-05-22] MEDS ORDERED: MEGESTROL400 MG/10 PO (15:35)
--- NOTE | 2023-05-22 15:37 | NUR ---
MED REC COMPLETE
--- NOTE | 2023-05-22 16:00 | NUR ---
Spoke with Gosia, pts . Jus is confused at this time. Per Gosia pt has history of alcoholism with ascites and liver failure. They [address] on [address] in a 1 story home with 1 step. She and Jus work. 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 He did not take his lactulose and declined rapidly. He fell out of bed and she was not able to lift him. He could not walk. She would like him placed if he does not clear mentally. We discussed this can take a couple of days. She states pt has been sober since July. He has an appt to meet with the Transplant team in July. We discussed placement to a SNF would be as a therapy pt. He would need to meet criteria and Placement would be for 21 days if their insurance auths payment.She states they filed for leave for work. I encouraged her to apply for disability and showed her the on line application. I gave her the Compare post-acute provider ratings site to compare SNFS. We discussed LONGTERM/residential care. She states they could not afford this out of pocket expense. I daksha gave her the phone number for [facility] and encouraged her to ask them for help if he cannot work for assist with medicaid. They have four children and she will request they assist if he goes home. Her youngest daughter has offered to quit her job and be a cg. We again discussed we will need to see how pt does in the next few days. She will go to [place] and potato picker a wc, walker, and possibly a commode if pt needs on dc.
--- NOTE | 2023-05-22 17:07 | NUR ---
PT MEDS ADMINISTERED PO, ASSISTANCE WITH EATING DINNER. PT TOLERATED WELL.
--- NOTE | 2023-05-22 18:15 | NUR ---
PT RESTING AWAKE IN BED. DENIES NEEDS AT THIS TIME. CALL LIGHT IN REACH.
--- NOTE | 2023-05-22 20:40 | NUR ---
PATIENT BP TRENDING UP AND PATIENT NOW HYPERTENSIVE. ATTEMPTS TO ADJUST CUFF AND TAKE MANUAL BP GIVE DIFFERING RESULTS. PATIENT IS HAVING TREMORS IN FAUST[place] ARMS, WORSE ON THE LEFT WHEN BP CUFF INFLATED. PATIENT IS ALERT BUT UNABLE TO FOLLOW INSTRUCTIONS OR ANSWER ANY QUESTIONS.
--- NOTE | 2023-05-22 21:54 | NUR ---
MD UPDATED ON PATIENT'S CURRENT MENTAL STATUS, LACK OF URINE OUTPUT, AND BP CONCERNS. MD GAVE ORDERS FOR LASIX, VERIFIED VIA REPEAT BACK.
--- NOTE | 2023-05-22 22:47 | NUR ---
PATIENT BLADDER SCAN FOR >700 MLS. PATIENT IS DIFFICULT TO WAKE BUT EVENTUALLY IS ABLE TO TAKE PO MEDS. ATTEMPTS MADE TO ASSIST PATIENT IN USING THE URNAL. PATIENT DOES NOT FOLLOW ANY INSTRUCTIONS AND DOES NOT RESPOND MEANINGFULLY TO VERBAL INSTRUCTIONS.
--- NOTE | 2023-05-22 23:15 | NUR ---
UPDATE GIVEN TO MD JONESING BLADDER SCAN; ORDERS FOR STRAIGHT CATH RECEIVED. VERIFIED VIA REPEAT BACK.
--- NOTE | 2023-05-22 23:52 | NUR ---
PATIENT SILENTLY VOMITING; YELLOW BILE NOTED ON FACE, GOWN AND BLANKETS. ORAL CARE DONE. BEDDING CHANGED. PATIENT'S HOB HAS REMAINED ELEVATED DUE TO CONCERN FOR ASPIRATION. LUNG SOUNDS ARE CLAER AND PATIENT MAINTAINING Sp02 >95% ON ROOM AIR.
[2023-05-23] VITALS (31 sets, daily range): BP systolic 56–140; BP diastolic 36–89
--- NOTE | 2023-05-23 02:00 | NUR ---
PATIENT NOTED TO HAVE TREMOR/ JERKING MOVEMENTS IN HIS ARMS AND HIS EYES. PATIENT ALERTS TO VOICE BUT DOES NOT RESPOND MEANINGFULLY TO ORIENTATION QUESTIONS OR NEURO EXAM. AWARE.
--- NOTE | 2023-05-23 03:15 | NUR ---
PATIENT HYPOTENSIVE. MANUAL BP DONE TO CONFIRM; PATIENT SYSTOLIC IN 50'S. PATIENT IS MINIMALLY RESPONSIVE TO NEURO EXAM OR VERBAL INSTRUCTIONS. CALL TO MD; ORDERS TO GIVE 1L NS BOLUS.
--- NOTE | 2023-05-23 04:00 | NUR ---
MD IN TO SEE PATIENT. PATIENT MORE RESPONSIVE TO DOCTORS NEURO EXAM. BP RESPONDING TO IV FLUIDS. PLAN OF CARE DISCUSSED AND ORDERS UPDATED.
[2023-05-23 05:30] LABS: BASOPHILS 0.2 % (0-2); HEMATOCRIT 33.4 % (35.0-50.0); HEMOGLOBIN 11.6 g/dL (12.0-18.0); LYMPHOCYTES 1.8 % (24-44); MCHC 34.6 g/dl (30-36); MCV 92.6 fl (81-99); MONOCYTES 7.3 % (0-12); NEUTROPHILS 90.7 % (39-80); PLATELET COUNT 175 K/uL (140-440); RBC 3.61 M/ul (4.3-5.7); RDW 16.9 (10.5-15.0)
[2023-05-23 05:48] LABS: ALBUMIN 2.8 g/dL (3.4-5.0); ALBUMIN/GLOBULIN RATIO 0.93 (1.1-2.4); ANION GAP 15.6 (7-21); BILIRUBIN, TOTAL 2.4 ng/dL (0.2-1.0); BUN/CREATININE RATIO 20.53 (6.0-28.6); CALCIUM 8.7 mg/dL (8.5-10.1); CREATININE, SERUM 2.97 mg/dL (0.70-1.30); POTASSIUM 4.6 mmol/L (3.5-5.1); PROTEIN, TOTAL 5.8 g/dL (6.4-8.2)
--- NOTE | 2023-05-23 05:50 | NUR ---
IV FLUIDS AND ALBUMIN INFUSED PER ORDER; PATIENT VS STABLE. MAP > 60 PER MD VERBAL ORDERS.
--- NOTE | 2023-05-23 07:28 | NUR ---
BARROS PLACED PER ORDER. PATIENT TOLERATED WELL. PATIENT IS ALERT BUT DOES NOT FOLLOW INSTURCTIONS. ALLOWS CARE WITHOUT ISSUE.
--- NOTE | 2023-05-23 07:30 | NUR ---
REPORT RECEIVED BY NIGHT RN. PT AWAKE IN BED. CALL LIGHT IN REACH.
--- NOTE | 2023-05-23 08:15 | NUR ---
MD NOTIFIED OF ONLY 10MLS URINE OUTPUT SINCE 329 WHEN BARROS STRAIGHT CATH WAS COMPLETED. ENVIRONMENTAL PROTECTION FORESTER RN INSERTED CATH AT 0730 WITH ONLY 10MLS URINE RETURN NOW NOTED. NO NEW ORDERS. TO SEE PATIENT.
--- NOTE | 2023-05-23 08:56 | NUR ---
PT UNABLE TO TAKE ORAL MEDICATIONS. GIVEN SIPS OF JUICE AND PT NOT FOLLOWING COMMANDS TO SWALLOW. SUCTION PROVIDED. MEDICATIONS HELD AT THIS TIME. ASSESSMENT COMPLETE. PT AWAKENS TO VOICE, UNABLE TO ASSESS ORIENTATION. PT NOT ANSWERING QUESTIONS OR FOLLOWING COMMANDS. HYPOACTIVE BOWEL TONES, FIRM ABD DISTENTION. 10 MLS DARK YELLOW URINE NOTED IN BARROS. PT CONTINUES WITH JERKY/TREMORS IN ARMS, FEET AND EYES.
--- NOTE | 2023-05-23 09:30 | NUR ---
DISCUSSED LOW URINE OUTPUT, DECREASE IN PT MENTATION AND LOW BP WITH DR DE JESUS. DR IN ROOM AT THIS TIME, IN ROOM. VERBAL ORDERS FOR AMMONIA LABS AND ABG. ORDERS PLACED.
--- NOTE | 2023-05-23 09:54 | NUR ---
PATIENT NOT FOLLOWING COMMANDS THIS AM. PATIENT NO LONGER ABLE TO SWALLOW LIQUIDS AT THE BEDSIDE WHICH IS ANOTHER CHANGE IN HIS STATUS. PER MD HE HAS ENCEPHALOPATHY AND HE CAN FOLLOW COMMANDS AT TIMES. PATIENT WAS ABLE TO EAT SOME DINNER LAST NIGHT WITH NO SIGNS OF ASPIRATION. PATIENT CANT SWALLOW FLUIDS THIS AM FOR MEDICATION ADMINISTRATION. SPEECH EVAL PLACED. THIS RN CONTACTED MD AGAIN D/T CONCERNS AND MD IN AT THE BEDSIDE TO UPDATE COREY PATIENTS OF PLAN OF CARE AND HIS CONTINUED WORSENING CONGNITIVE STATUS. LABS PLACED AND WILL MONITOR URINE OUTPUT. NO NEW ORDERS FOR NO URINE OUTPUT OR BLOOD PRESSURE WITH SYSTOLIC IN THE 80'S.
[2023-05-23 10:13] LABS: BASE EXCESS, BLOOD GAS -1.8 mmol/L (-2-2); O2 SATURATION, BLOOD GAS 98.4 % (95.0-100.0); PCO2, BLOOD GAS 27.4 mmHg (35-45); PH, BLOOD GAS 7.49 (7.35-7.45); PO2, BLOOD GAS 78 mmHg (80-100); TOTAL CO2, BLOOD GAS 21.9
[2023-05-23 10:14] LABS: OXYGEN RECEIVED, BLOOD GAS 92%
--- NOTE | 2023-05-23 10:27 | NUR ---
MD NOTIFIED OF LAB RESULTS. RT UPDATED MD ON ABG. WILL GIVE LACTULOSE RECTAL D/T PATIETNS INABILITY TO FOLLOW COMMANDS THIS AM.
--- NOTE | 2023-05-23 10:27 | NUR ---
UR NOTE [facility]CG LIVER DISEASE (ISC) 05/22/23 MET CLINICAL INDICATIONS FOR ADMISSION TO INPATIENT CARE GL DAY 1
--- NOTE | 2023-05-23 10:48 | NUR ---
PT FAMILY IN ROOM AT THIS TIME.
--- NOTE | 2023-05-23 11:15 | NUR ---
LACTULOSE ENEMA ADMINISTERED. PT TOLERATED WELL. WATER GIVEN ORALLY WITH SPOON, PT CONTINUES TO BE UNABLE TO SWALLOW OR FOLLOW COMMANDS TO SWALLOW.
--- NOTE | 2023-05-23 11:17 | NUR ---
ROUNDS. ESCORTED FAMILY TO CCU WAITING ROOM. OFFERED HOSPITALITY; PROVIDED ECONOMICS INSTRUCTOR EDUCATION; PROVIDED PRAYER.
--- NOTE | 2023-05-23 12:42 | NUR ---
PT WITH SMALL LIQUID BROWN BM. PT GIVEN BED BATH, MICHELLE CARE AND CATHETER CARE PROVIDED. CLEAN GOWN, PARTIAL LINEN CHANGE. PT ABLE TO RESPOND TO SIMPLE QUESTIONS, UNABLE TO ASSESS ORIENTATION. PT ABLE TO TAKE SIPS OF WATER WITH SPOON, MEDS IN APPLESAUCE. FAMILY BACK TO BEDSIDE. CALL LIGHT IN REACH.
--- NOTE | 2023-05-23 13:19 | NUR ---
UPDATED DR DE JESUS ON PT URINE OUTPUT, ABILITY TO TAKE ORAL MEDS AND SMALL BM. NO NEW ORDERS AT THIS TIME.
--- NOTE | 2023-05-23 14:45 | NUR ---
LACTULOSE ENEMA ADMINISTERED. SMALL BROWN BOWEL MOVEMENT NOTED. PT TOLERATED ENEMA WELL. PT CLEANED, PERICARE AND CATH CARE PROVIDED. PARTIAL LINEN CHANGE. RETURNS TO BEDSIDE.
--- NOTE | 2023-05-23 17:40 | NUR ---
UPDATED DR DE JESUS VIA PHONE, TELEPHONE ORDERS FOR ALBUMIN AND LASIX. PONCE PLACED.
--- NOTE | 2023-05-23 18:42 | NUR ---
ALBUMIN STARTED, PT REPOSITIONED. FAMILY AT BEDSIDE.
[2023-05-23 19:41] LABS: AMYLASE FLUID SOURCE Ascites fluid (()); AMYLASE, BODY FLUID 34 U/L (()); GLUCOSE FLUID SOURCE Ascites fluid (()); GLUCOSE,BODY FLUID 112 mg/dL (()); LACTATE DEHYDROGENASE TOTAL,BF 43 U/L (()); LDH FLUID SOURCE Ascites fluid (())
--- NOTE | 2023-05-23 20:00 | NUR ---
SHIFT REPORT RECEIVED. PATIENT'S APPROACHED THE NURSES STATION AND HAS CONCERN THAT THE PATIENT IS PAINFUL AND AGITATED. PATIENT'S EDUCATED ON POSSIBLE SIDE EFFECTS OF PROVIDING CERTAIN MEDS FOR COMFORT DUE TO PATIENT'S INABILITY TO METABOLIZE MEDS. PATIENT'S INSIST SHE WOULD LIKE TO SEE THE PATIENT HAVE "SOMETHING TO RELAX HIM". PATIENT'S WOULD LIKE TO SPEAK TO THE DOCTOR ABOUT THIS WELL. THIS RN CALLED ; THE MD DID NOT PROVIDE ORDERS FOR PAIN OR AGITATION CONTROL AND DECLINED TO DISCUSS THE OPTIONS FOR COMFORT CARE WITH PATIENT'S . DISCUSSED CONCERN FOR PATIENT'S INABILITY TO TAKE PO MEDS AND NOT SWALLOWING SAFELY; INSIST PO MEDS WERE PROVIDED.
--- NOTE | 2023-05-23 20:48 | NUR ---
PATIENT REPOSITIONED. NO BM NOTED. PATIENT IS RESTLESS IN THE BED. ALERTS TO SOUND BUT DOES NOT RESPOND MEANINGFULLY. ATTEMPTS MADE TO PROVIDE PO MEDS PER MD REQUEST. PATIENT TAKES MEDS IN HIS MOUTH AND APPEARS INTERESTED IN EATING AND DRINKING. HOWEVER, PATIENT DOES NOT SWALLOW AT ALL. AFTER SEVERAL MINS ORAL CARE AND SUCTIONING PROVIDED TO REMOVE RESIDUE FROM PATIENT'S MOUTH TO PREVENT ASPIRATION. PATIENT FAMILY REPORTS PATIENT HAS BEEN "SPITTING UP" AND POSSIBLY DRY HEAVING. PRN MEDS PROVIDED FOR NAUSEA. VS SATBLE. PATIENT TOLERATING ROOM AIR. ABD IS LARGELY DISTENDED, FIRM WITH ACTIVE BOWEL SOUNDS. BARROS CARE DONE; URINE IS MINIMAL AND DARK ORANGE/YELLOW COLOR. PATIENT HAS NOTABLE TREMORS OR JERKING MOVEMENTS IN ALL EXTREMITIES. ROOM CLEANED UP AND ORGANIZED. IN ROOM, PROVIDED UPDATED PLAN OF CARE AND DISCUSSED EXPECTATIONS FOR THE NIGHT. INCLUDING MEDS, REPOSITIONING AND MONITORING. ALL QUESTIONS ANSWERED.
--- NOTE | 2023-05-23 23:00 | NUR ---
LACTULOSE ENEMA ADMINISTERED PER ORDER. PATIENT TOLERATED WELL. SMALL LIQUID BM NOTED. PATIENT CLEANED AND NEW GOWN AND BEDDING PROVIDED. PATIENT REPOSITIONED IN BED. FAMILY AT BEDSIDE.
[2023-05-24] VITALS (7 sets, daily range): BP systolic 82–116; BP diastolic 57–74
[2023-05-24 00:11] LABS: TOTAL PROTEIN FLUID SOURCE Ascites fluid (()); TOTAL PROTEIN, BODY FLUID 1.4 g/dL (())
--- NOTE | 2023-05-24 05:09 | NUR ---
PATIENT YELLING OUT AND THROWING HIS EXTREMITIES ABOUT THE BED. PATIENT DOES NOT ALERT TO PAINFUL STIMULI OR VERBAL STIMULI. PATIENT'S SON AT BEDSIDE. PATIENT RR 30, Sp02 92% ON ROOM AIR. BREATH SOUNDS ARE AUDIBLY COARSE AND SEVERE CRACKLES HEARD THROUGHOUT. PATIENT APPEARS SCARED OR ANXIOUS. CALLING OUT A PHRASE OVER AND OVER BUT STAFF UNABLE TO UNDERSTAND WHAT HE IS TRYING TO SAY. HR 130'S, SINUS TACH. AFTER SEVERAL MINS PATIENT STARTED TO CALM. HR REMAINS 115-120'S. TOLERATING ROOM AIR BUT WORK OF BREATHING APPEARS INCREASED.
[2023-05-24 05:19] LABS: BASOPHILS 0.2 % (0-2); EOSINOPHILS 0.4 % (0-6); HEMATOCRIT 33.9 % (35.0-50.0); HEMOGLOBIN 12.2 g/dL (12.0-18.0); LYMPHOCYTES 1.7 % (24-44); MCH 33.1 (27-36); MCHC 35.9 g/dl (30-36); MCV 92.1 fl (81-99); MONOCYTES 9.7 % (0-12); PLATELET COUNT 192 K/uL (140-440); RBC 3.68 M/ul (4.3-5.7); RDW 17.3 (10.5-15.0)
[2023-05-24 05:38] LABS: ALBUMIN 3.4 g/dL (3.4-5.0); ALBUMIN/GLOBULIN RATIO 1.21 (1.1-2.4); ANION GAP 19.7 (7-21); BILIRUBIN, TOTAL 2.4 ng/dL (0.2-1.0); BUN/CREATININE RATIO 19.14 (6.0-28.6); CALCIUM 9.5 mg/dL (8.5-10.1); CREATININE, SERUM 4.23 mg/dL (0.70-1.30); POTASSIUM 4.7 mmol/L (3.5-5.1); PROTEIN, TOTAL 6.2 g/dL (6.4-8.2)
--- NOTE | 2023-05-24 06:30 | NUR ---
PATIENT HAD VERY LARGE LIQUID BOWEL MOVEMENT. MICHELLE CARE DONE AND NEW ATTENDS IN PLACE. PATIENT TOLERATED WELL. PATIENT DOES NOT FOLLOW INSTRUCTIONS AND LIMBS DO NOT APPEAR TO HAVE WELL CONTROLLED MOVEMENTS. PATIENT DOES NOT RESPOND MEANINGFULLY TO QUESTIONS OR WHEN SPOKEN TO. POSITIONED TO RIGHT SIDE. PATIENT'S BARROS EMPTIED, OUTPUT MINIMAL. MD AWARE. FAMILY AT BEDSIDE. NO OTHER NEEDS AT THIS TIME.
--- NOTE | 2023-05-24 07:30 | NUR ---
REPORT RECIEVED FROM FLEET DRIVER RN. PATIENT RESTING IN BED WITH HIS SON AT THE [facility]. PATIENT HAD ONE EPISODE OF TACHYCARDIA IN THE NIGHT WITH AGITATION AND SOB PER REPORT. PATIENT CURRENTLY RESTING WITH HR 110 AND SPO2 94%. FAMILY DENIES ANY NEEDS AT THIS TIME.
--- NOTE | 2023-05-24 08:30 | NUR ---
UPDATED MD OF PATIENTS URINE OUTPUT, SYSTOLIC IN LOW 80'S, AND PATIENTS FAMILY WANTING UPDATED ON PLAN OF CARE. UPDATED FAMILY HE WILL BE OVER SHORTLY TO DISCUSS THESE PLANS.
--- NOTE | 2023-05-24 10:59 | NUR ---
IN ROOM WITH CY ROMERO TO ASSIST PT WITH CARES. PT IN BED, MUMBLING AND TWITCHING. BED BATH DONE WITH WARM SHOWER WIPES. CLEAN DRAW SHEET, CHUCKS AND BRIEF IN PLACE. ORAL CARE DONE. MOISTURIZER APPLIED TO LIPS. ROOM TIDIED, FLOOR CLEANED.
--- NOTE | 2023-05-24 11:05 | NUR ---
THIS RN IN WITH PATIENT AND PROVIDER TO DISCUSS PLAN OF CARE. PATIENTS THE ONLY ONE AT THE BEDSIDE AT THIS TIME. DISCUSSED OPTIONS AND PATIENTS WOULD LIKE TO FOCUS OF PATIENTS COMFORT AT THIS TIME AT THE END OF HIS LIFE. PATIENTS TEARFUL, BUT UNDERSTANDS TREATMENT OPTION. PATIENTS DOES NOT WANT TO TRANSFER PATIENT FOR EXTENDED TREATMENT.
--- NOTE | 2023-05-24 11:41 | NUR ---
MD IN WITH PATIENTS , KIDS, AND PATIENTS SYBLINGS TO DISCUSS PLAN OF CARE OPTIONS. ALL FAMILY IS IN AGREEMENT OF PLAN OFCARE. WILL PROVIDED PATIENT MEDICATIONS TO PROVIDE PAIN RELIEF AT THIS TIME IN HIS CARE.
--- NOTE | 2023-05-24 12:10 | NUR ---
PATIENT MEDICATIONS GIVEN AND PATIENTS FAMILY AT THE BEDSIDE AND UPDATED ON STAUTS. NO QUESTIONS AT THIS TIME.
[2023-05-24 12:29] LABS: ADENOSINE DEAMINASE,PLEURAL FL 2 U/L (0-30)
--- NOTE | 2023-05-24 13:23 | NUR ---
Report received from Dina BENOIT, care of patient assumed at this time. Patient appears to be resting comfortably, no signs of distress. Introductions to family made. No needs at this time. End of life measures are in place.
--- NOTE | 2023-05-24 13:28 | NUR ---
REPORT GIVEN TO DIETER BENOIT. DIETER WILL RESUME CARE OF PATIENT AT THIS TIME. UPDATED ON PLAN OF CARE AND INTRODUCED PATIENT TO STAFF. PATIENTS FAMILY IS FAMILIAR WITH RN FROM [facility]. NO OTHER QUESTIONS AT THIS TIME. PATIENT IS RESTING COMFORTABLY AT THSI TIME.
--- NOTE | 2023-05-24 13:59 | NUR ---
FAMILY IN ROOM, CHANTING AND SINGING. DID NOT INTERRUPT AT THIS TIME TO CHECK ON PATIENT.
--- NOTE | 2023-05-24 14:27 | NUR ---
PATIENT APPEARS TO BE RESTING COMFORTABLY. NO SIGNS OF DISTRESS. FAMILY DENIES ANY NEEDS AT THIS TIME.
--- NOTE | 2023-05-24 15:36 | NUR ---
Patient appears to be resting comfortably, no signs of distress. Family denies any needs. Water and snack tray refreshed.
--- NOTE | 2023-05-24 16:04 | NUR ---
PATIENT CONTINUES TO REST, EYES CLOSED, NO APPARENT SIGNS OF DISTRESS. FAMILY DENIES ANY NEEDS.
--- NOTE | 2023-05-24 16:55 | NUR ---
DINNER TRAY DELIVERED TO ROOM FOR . MANY FAMILY MEMBERS IN ROOM TALKING AND TELLING STORIES. DENY ANY NEEDS AT THIS TIME.
--- NOTE | 2023-05-24 17:49 | NUR ---
BED BATH COMPLETED WITH ASSISTANCE FROM NASIM WILEY, HAIR WASHED, MOUTH SWABBED, CHAPSTICK APPLIED. PATIENT OPENS EYES TO PHYSICAL STIMULI WHEN BEING LOG ROLLED, DOES NOT VOCALIZE. ONCE SETTLED AFTER CARES PROVIDED PATIENT HAS EYES CLOSED, APPEARS TO BE IN NO DISTRESS. AND FAMILY NOTIFIED THAT CARES ARE COMPLETED. BACK INTO ROOM AT THIS TIME. HOSPICE TRAY REPLENISHED.
--- NOTE | 2023-05-24 19:13 | NUR ---
NOTIFIED BY FAMILY THAT THEY FEEL PATIENT IS RESTLESS. INTO ROOM, PATIENT OPENS ONE EYE, IS MOVING ARMS AND LEGS SLIGHTLY. MEDICATED WITH LORAZEPAM AND MORPHINE PER EMAR. NO OTHER NEEDS. FAMILY DENIES ANY NEEDS.
--- NOTE | 2023-05-24 19:30 | NUR ---
SHIFT REPORT RECEIVED. PATIENT APPEARS COMFORTABLE IN BED. EYES CLOSED, BREATHING EVEN AND NONLABORED. FAMILY AT BEDSIDE. DENIED ANY NEEDS. FOOD TRAYS REMOVED FROM ROOM.
--- NOTE | 2023-05-24 21:00 | NUR ---
PATIENT REMAINS RESTFUL, EYES CLOSED. RR 10. FAMILY DENIED ANY SIGNS OF DISCOMFORT AND DECLINED TO HAVE PATIENT REPOSITIONED AT THIS TIME.
--- NOTE | 2023-05-24 21:58 | NUR ---
PATIENT APPEARS RESTFUL IN THE BED. AT BEDSIDE. OFFERED TO REPOSITION PATIENT, DECLINED. STATING HE LOOKS COMFORTABLE. NO OTHER NEEDS AT THIS TIME.
--- NOTE | 2023-05-24 22:58 | NUR ---
PATIENT MOVED TO 126 WITH ASSISTANCE OF HOUSE FLOAT AND COMMERCIAL PHOTOGRAPHER. PATIENT'S STAYING THE NIGHT. ASSISTED WITH PROVIDING ACCOMIDATIONS FOR HER TO SLEEP. DISCUSSED PLAN OF CARE FOR THE NIGHT, ALL QUESTIONS ASKED. PATIENT APPEARS COMFORTABLE AT THIS TIME. BREATHING EVEN AND NON-LABORED.
--- NOTE | 2023-05-25 01:30 | NUR ---
PATIENT APPEARS RESTFUL; BREATHING EVEN AND NONLABORED. RASS -4. FAMILY AT BEDSIDE.
--- NOTE | 2023-05-25 04:00 | NUR ---
PATIENT APPEARS COMFORTABLE; RASS -4. FAMILY AT BEDSIDE.
--- NOTE | 2023-05-25 06:00 | NUR ---
RASS SCORE -4. AT BEDSIDE. NO NEEDS AT THIS TIME.
--- NOTE | 2023-05-25 08:29 | NUR ---
pt appears to be sleeping, resp labored. is at the bedside.
--- NOTE | 2023-05-25 08:56 | NUR ---
PER PT'A PT WAS AWAKING AND APPEARED TO BE IN DISCOMFORTE. wHEN IN THE ROOM PT TWITCHING AND FACICAL GRIMINES NOTED AND TENSE. MEDICATED WITH 2MG IVP MORPHINE AT THIS TIME FOR DISCOMFORTE.
--- NOTE | 2023-05-25 11:38 | NUR ---
PT ASSESSMENT DEFERED PER FAMILY REQUEST. PT GIVEN COMPLETE BED BATH, REPOSITIONED TO RT SIDE, ORAL CARE GIVEN.
--- NOTE | 2023-05-25 14:20 | NUR ---
FAMILY AND FREINDS REMAIN AT THE BEDSICE, PT APPEARS TO BE COMFORTABLE AT THIS TIME.
--- NOTE | 2023-05-25 16:36 | NUR ---
medicated per family request due to pt appeared to be uncomfortable at this time. morphine 2mg ivp slowly given. family and freinds remain at the bedside at this time. all questions answered.
--- NOTE | 2023-05-25 17:20 | NUR ---
pt appears to be resting comforable at this time. family and freinds remain at bedside.
--- NOTE | 2023-05-25 17:39 | NUR ---
BARROS CATHETER EMPETED AT THIS TIME, 500MLS OF DARK NICOLASA IN COLOR URINE DRAINED AT THIS TIME. FAMILY AND FREINDS REMAIN AT THE BEDSIDE. PT APPEARS TO REMAIN COMFORTABLE AT THIS TIME.
--- NOTE | 2023-05-25 18:16 | NUR ---
SHIFT NOTE: PER FAMILY REQUEST NO ASSESSMENT AND VITALS TAKE. mEDICATED PATIENT APPEARED UNCOMFORTABLE. COMPLETE BED BATH GIVEN AND LINES CHANGED. FAMILY AND FREINDS HAVE BEEN AT THE BEDSIDE ALL DAY. COFFEE AND WATER WITH SNACKS PROVIDE THROUGHOUT THE SHIFT FOR FAMILY AND FREINDS.
--- NOTE | 2023-05-25 19:30 | NUR ---
PATIENT'S OUT AT NURSES STATION, REPORTS PATIENT'S BREATHING SOUNDS WET. THE IS TEARFUL AND ASKING STAFF IF THAT MEANS HE WILL PASS AWAY SOON. DAYSHIFT RN GEETHA ASSESSED PATIENT'S LUNG SOUNDS WHICH ARE FULL OF CRACKLES. THIS RN AND GEETHA RN REPOSITIONED PATIENT TO HIS RIGHT SIDE. ASSURSED PATIENT'S THIS IS AN EXPECTED FINDING AND IF REPOSITIONING DOES NOT HELP THEN MEDS CAN BE PROVIDED.
--- NOTE | 2023-05-25 20:10 | NUR ---
PATIENT APPEARS MORE COMFORTABLE AND FAMILY AGREES HE IS RESTING WELL NOW. MULTIPLE FAMILY MEMBERS REMAIN IN ROOM. PLANS TO STAY THE NIGHT. ENCOURAGED FAMILY TO LEF STAFF KNOW IF THEY NEED ANYTHING.
--- NOTE | 2023-05-25 21:00 | NUR ---
PATIENT'S DAUGHTER APPROACHED THE NURSES STATION AND APPEARED VERY ANXIOUS ASKING FOR HELP FOR THE PATIENT. ON ARRIVAL TO THE ROOM THE PATIENT IS RESTING IN BED. EYES OPEN BUT NOT FIXED ON ANYTHING IN THE ROOM. PATIENT APPEARS SLIGHTLY AGITATED AND BREATHING IS LABORED. PRN MEDS PROVIDED.
--- NOTE | 2023-05-25 23:16 | NUR ---
PATIENT APPEARS RESTFUL. BREATH SOUNDS ARE COARSE/WET. ATROPINE DROPS PROVIDED TO REDUCE SECREATIONS. PATIENT'S HOB IS ELEVATED. AT BEDSIDE. NO OTHER NEEDS AT THIS TIME.
--- NOTE | 2023-05-26 01:15 | NUR ---
PATIENT RESTING, APPEARS COMFORTABLE. AT BEDSIDE. NO NEEDS AT THIS TIME.
--- NOTE | 2023-05-26 03:00 | NUR ---
PATIENT'S RR 10 PER MIN. NON-LABORED. ATTEMPS MADE TO REPOSITION PATIENT DUE TO COARSE OR WET BREATH SOUNDS NOTED BY PATIENT'S . PATIENT APPEARS COMFORTABLE.
--- NOTE | 2023-05-26 04:40 | NUR ---
PATIENT APPEARS RESTFUL. BREATHING NON-LABORED. BREATH SOUNDS ARE COARSE. AT BEDSIDE. DENIED ANY NEEDS OR CONCERNS.
--- NOTE | 2023-05-26 06:45 | NUR ---
PATIENT APPEARS RESTFUL. AT BEDSIDE. DENIES NEEDS.
--- NOTE | 2023-05-26 07:30 | NUR ---
REPORT RECEIVED. IN ROOM. PATIENT IS LAYING IN BED ON BACK. AUDILBE UPPER AIRWAY NOISE HEARD UPON ENTERING ROOM. TALKED WITH PATIENT ABOUT POC FOR THE DAY. INDICATES UNDERSTANDING.
--- NOTE | 2023-05-26 08:45 | NUR ---
MORPHINE 4 MG IV GIVEN FOR COMFORT. IS AT BEDSIDE. SL X 2 FLUSHED WITH NS. BARROS CATH PATENT, SMALL AMOUNT OF URINE IN TUBING.
--- NOTE | 2023-05-26 09:42 | NUR ---
IN ROOM TO SPEAK WITH SPOUSE, COREY. DISCUSSED HOSPICE CARE AT [place] AT HOME. INFORMED COREY [facility] MAY ADMIT TOMORROW OR . DISCUSSED WHAT HOSPICE'S ROLL IS IN PATIENT CARE AT DISCHARGED. ALSO DISCUSSED WILL SEND HOME NON-EMERGENT TRANSPORT IN AMBULANCE AT DISCHARGE. STATES SHE HAS NOT CONSIDERED HOSPICE BECAUSE SHE FELT PATIENT WOULD HAVE PASSED BY NOW. INFORMED HER WILL RETURN TO DISCUSS AFTER SHE HAS TIME TO SPEAK WITH FAMILY REGARDING PLAN.
--- NOTE | 2023-05-26 09:58 | NUR ---
ROUNDS. COREY IN ROOM; CONFUSED REGARDING RECENT CONVERSATION WITH CASE MANAGEMENT. CLARIFIED INFORMATION RECEIVED FROM CARE TEAM; REFRAMED EXPERIENCE; PROVIDED SUPPORTIVE PRESENCE INDICATED IMPROVED UNDERSTANDING AND READINESS TO CONSULT WITH CASE MANAGEMENT.
--- NOTE | 2023-05-26 11:31 | NUR ---
SPOKE WITH PATIENT'S , COREY, AND MULTIPLE OTHER FAMILY MEMBERS PRESENT. COREY STATES SHE IS OK WITH END OF LIFE/HOSPICE CARE, BUT DOES NOT WANT TO TAKE PATIENT HOME. CHART FAXED TO GABBY ROBERSON. DR. DINH UPDATED. INFORMED FAMILY WILL UPDATE WITH CHANGES. QUESTIONS ANSWERED.
--- NOTE | 2023-05-26 13:05 | NUR ---
MORPHINE 2 MG IV GIVEN FOR OVERALL COMFORT/BREATHING. CONTINUES TO HAVE AUDIBLE COARSE BREATH SOUNDS. NOT ABLE TO HEAR HEART TONES DUE TO CONGESTION. SEVERAL FAMILY MEMBERS ARE IN ROOM. REPOSITIONED. BARROS PATENT. SKIN IS WARM ANE DRY TO TOUCH.
--- NOTE | 2023-05-26 13:57 | NUR ---
ROUNDS. CONNECTED WITH FAMILY IN CCU WAITING ROOM. CONSENTED TO PRAYER; EXHIBITED SITUATIONALLY APPROPRIATE RESPONSES. PROVIDED SUPPORTIVE PRESENCE; PROVIDED HOSPITALITY; PROVIDED PRAYER.
--- NOTE | 2023-05-26 14:09 | NUR ---
[facility] nurses currently reviewing patient chart, Gosia updated.
--- NOTE | 2023-05-26 15:29 | NUR ---
UR NOTE [facility] LIVER DISEASE (ISC) 05/24/23 VARIANCE GL DAY 2 05/26/23 VARIANCE GL DAY 2
--- NOTE | 2023-05-26 16:42 | NUR ---
JAYSON from [facility] patient will be accepted by facility, pending insurance auth which has been sent this afternoon. Gosia notified. Nursing staff notified.
--- NOTE | 2023-05-26 19:45 | NUR ---
rn in room with family - sat at bedside, introduced shelf and observed pt and family. RN offered asia - charley for bedside tonight and discussed medication and plan of care. pt is agonal breathing with eyes closed, resp rate is apnic at times and rattled, pt has multiple family at sides, all denies needs at this time.
--- NOTE | 2023-05-26 20:50 | NUR ---
discussed with asia medication for comfort - pt with furrowed brow, repositioned looks uncomfortable, educated family on ativan and morphine for pain and anxiety/discomfort - agree to med. iv r arm flushes well. pt lung sounds are rattled.
--- NOTE | 2023-05-26 23:50 | NUR ---
pt older brother out to desk, reports family is anxious about transfer tomorrow. wonders about all the family in room if it is causing pt to be uncomfortable, anxious as well? RN and brother discussed how every situation and pt is diffrent. rn in to room, family members saying goodbys and getting ready for rest at pt side. Family appreaciated rn presence and repositioning, greenwood to gravity with small amt of urine, pt with agonal breathing and slow resp rate. medicated for discomfort and anxiety - grimices with movement.
--- NOTE | 2023-05-27 01:16 | NUR ---
in to check on pt, agonal breathing, at side- denies needs.
--- NOTE | 2023-05-27 03:44 | NUR ---
PT USED CALL LIGHT - ASKED FOR MORE PAIN/ANXIETY MEDS, PT INCREASED WORK OF BREATHING, RATTLES HEARD. FURROWED BROW. DENIES OTHER NEEDS. RESTING AT HIS SIDE.
--- NOTE | 2023-05-27 06:45 | NUR ---
called rn to room, pt appears to be at end of life, takes an agonal breath with RN in room, rn sits at bedside with - offers comfort, she is given a moment with pt alone. RN in with pt and at last breath, rn sits at bedside with , pt has no heartbeat and no more breaths. dr blake. [id number]. rn visited with asia, pt is not donor, [facility] is facility of choice. pt has not personal belongings at this time that she would like to go with pt. rn educated on plan of care at this time, asia is thankful for information and care. she is relived he is at peace - rn asked and she declines spiritual care at this time. rn left with her permission to give her some time at bedside with pt. 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 [facility] to door.
--- NOTE | 2023-05-27 07:15 | NUR ---
CALLED BY BLASTING CAP ASSEMBLER [facility] AND TOLD THAT PT HAD . RESPONDED TO UNIT WHERE [facility] TOLD ME HAD DECLINED PASTORAL CARE SERVICES AT THAT TIME. WILL FOLLOWUP. PROVIDED SILENT PRAYER OF COMMENDATION.
--- NOTE | 2023-05-27 07:35 | NUR ---
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
--- NOTE | 2023-05-27 08:30 | NUR ---
BODY TO [facility]. PATIENT BELONGINGS WITH .
--- NOTE | 2023-05-27 09:45 | NUR ---
[address] Naresh informed me patient was cleared to go to home. Called [facility] as per family wishes. Informed the family the [facility] had been called. 0817 Abdiel from [facility] arrived. Assisted with transfer of body. Escorted Abdiel to and from loading dock. Patient left facility 0830. 0835 Assisted family with transport of belongings from room. All patient belongings went with . Escorted family to front door. Assisted with loading of care. Gave final well wishes.
--- NOTE | 2023-05-29 12:15 | EKG ---
[facility] [address] [place] [address] Signed Normal sinus rhythm Nonspecific T wave abnormality Abnormal ECG When compared with ECG of 11-APR-2023 15:09, Nonspecific T wave abnormality now evident in Anterolateral leads Confirmed by Silviano De Jesus MD ([id number]) on 05/22/2023 3:59:38 PM Electronically Signed By: SILVIANO DE JESUS 05/29/23 1215 PATIENT NAME: ANY HAHN MILA Electrocardiogram DATE OF : 66 PHYSICIAN: SILVIANO DE JESUS REPORT #: [id number] REPORT IS CONFIDENTIAL AND NOT TO BE RELEASED WITHOUT AUTHORIZATION
== END 2023-05-27 06:50 | DRG 442 ==
LOC: ED 07:59 → CCU 14:36
PROVIDERS: Emergency Medicine; ADMIT Internal Medicine; ATTEND Internal Medicine
PROC: 4A033R1 Measurement of Arterial Saturation, Peripheral, Percutaneous Approach (ICD-10-PCS; principal; 2023-05-22)
PROC: 30233J1 Transfusion of Nonautologous Serum Albumin into Peripheral Vein, Percutaneous Approach (ICD-10-PCS; 2023-05-22)
PROC: 0W9G3ZX Drainage of Peritoneal Cavity, Percutaneous Approach, Diagnostic (ICD-10-PCS; 2023-05-22)
DX: K76.82 Hepatic encephalopathy (principal); E87.1 Hypo-osmolality and hyponatremia; E87.20 Acidosis, unspecified; K70.31 Alcoholic cirrhosis of liver with ascites; Z51.5 Encounter for palliative care; Z66 Do not resuscitate; K72.10 Chronic hepatic failure without coma; I95.1 Orthostatic hypotension; E87.5 Hyperkalemia; E88.09 Other disorders of plasma-protein metabolism, not elsewhere classified; N18.9 Chronic kidney disease, unspecified; E11.22 Type 2 diabetes mellitus with diabetic chronic kidney disease; E78.00 Pure hypercholesterolemia, unspecified; T47.3X6A Underdosing of saline and osmotic laxatives, initial encounter; Z91.148 Patient's other noncompliance with medication regimen for other reason; Z79.899 Other long term (current) drug therapy; Z79.01 Long term (current) use of anticoagulants
CPT/HCPCS: 36415; 49083; 51701; 51702; 51798; 70450; 71045; 74176; 80053; 80307; 81001; 82040; 82140; 82150; 82553; 82803; 82945; 83605; 83690; 83986; 84157; 85025; 85610; 87040; 87070; 87205; 89051; 92610; 93005; 93010; 99285-25; J0696; J0780; J0878; J1940; J2060; J2270; J2405; J7030; P9047